=== PATIENT | female | born 2000 | race African-American/Black ===

== ENCOUNTER 2021-10-21 12:10 | Observation (INO) | payer MEDICAID ==
[~2021-10-21] VITALS: Ht 160 cm; Wt 63.5 kg
== END 2021-10-21 13:45 | disposition home or self-care (01) ==
LOC: 8 EST A/PP 12:10
PROVIDERS: ADMIT Obstetrics & Gynecology; ATTEND Obstetrics & Gynecology
DX: O36.8930 Maternal care for other specified fetal problems, third trimester, not applicable or unspecified (principal); Z3A.34 34 weeks gestation of pregnancy
CPT/HCPCS: 59025; G0378